=== PATIENT | male | born 1995 | race African-American/Black ===

== ENCOUNTER 2016-10-12 11:39 | Emergency (ER) | payer MEDICAID, OTHER ==
[~2016-10-12] VITALS: Ht 182.9 cm; Wt 68.0 kg
[2016-10-12] MEDS ORDERED: KETOROLAC 60MG/2ML VIAL IM ONE (15:45)
[2016-10-12 15:47] VITALS: BP 126/81
== END 2016-10-12 17:33 | disposition home or self-care (01) ==
LOC: ER 15:55
DX: K04.7 Periapical abscess without sinus (principal); F12.90 Cannabis use, unspecified, uncomplicated; R22.0 Localized swelling, mass and lump, head
CPT/HCPCS: 96372; 99283; J1885